=== PATIENT | female | born 1965 | race Caucasian/White ===

== ENCOUNTER 2016-12-12 10:13 | Emergency (ER) | payer SELFPAY ==
[~2016-12-12] VITALS: Ht 170.2 cm; Wt 70.0 kg
[~2016-12-12 10:13] MED LIST: ALPR.25 PO; HYDR10TA16 PO; SOMA350T PO
[2016-12-12 10:27] VITALS: BP 138/88; PULSE 74; RESP 16; TEMP 98.1; O2SAT 98
--- NOTE | 2016-12-12 10:42 | PD ---
HPI Chief Complaint: Medical Clearance Time Seen by Provider: 10:36 Travel History International Travel<30 days: No Contact w/Intl Traveler<30days: No Traveled to known affect area: No History of Present Illness HPI 51-year-old female presents the emergency Department with history of 4 years of right knee pain back pain, and lower extremity pain. She is sent here by her physician for outpatient MRI of her cervical spine, right knee, and left lower extremity. Patient has no acute issue as we speak. Patient is attempting to get [employer] insurance for disability. She has no known drug allergies. PFSH Past Medical History Anxiety: Yes Diminished Hearing: No Hypertension: Yes Insomnia: Yes Musculoskeletal: Yes (CHRONIC JOINT PAIN) ?: Not Menopausal: Yes Past Surgical History Gynecologic Surgery: Yes (CYST REMOVED RIGHT OVARY) Other Surgery: Yes (CANDICE GLAND REMOVAL) Social History Alcohol Use: No Tobacco Use: Yes (3 CIG DAY) Substance Use: No Allergies-Medications (Allergen,Severity, Reaction): Coded Allergies: No Known Allergies (Verified , 05/08/13) Reported Meds & Prescriptions Reported Meds & Active Scripts Active Reported Soma (Carisoprodol) 350 Mg Tab 350 Mg PO HS Xanax 0.25 Mg Tab (Alprazolam) 0.25 Mg Tab 0.25 Mg PO TIDPRN Lortab 10/500 (Acetaminophen/Hydrocodone Bitart) 10 Mg/500 Mg Tab 1 Tab PO Q6HPRN FOR PAIN Review of Systems Except as stated in HPI: all other systems reviewed are Neg General / Constitutional: No: Fever Eyes: No: Visual changes HENT: No: Headaches Cardiovascular: No: Chest Pain or Discomfort Respiratory: No: Shortness of Breath Gastrointestinal: No: Abdominal Pain Genitourinary: No: Dysuria Musculoskeletal: Positive: Arthralgias, Limited ROM, Pain Skin: No Rash Neurologic: No: Weakness Psychiatric: No: Depression Endocrine: No: Polydipsia Hematologic/Lymphatic: No: Easy Bruising Physical Exam Narrative GENERAL: Patient is a mature to the room with a cane. SKIN: Warm and dry. Color. Normal turgor. HEAD: Atraumatic. Normocephalic. EYES: Pupils equal and round. No scleral icterus. No injection or drainage. ENT: No nasal bleeding or discharge. Mucous membranes pink and moist. Pharynx is clear. NECK: Trachea midline. Neck is supple nontender. CARDIOVASCULAR: Regular rate and rhythm. RESPIRATORY: No accessory muscle use. Clear to auscultation. Breath sounds equal bilaterally. MUSCULOSKELETAL: Extremities without clubbing, cyanosis, or edema. No obvious deformities. Patient complains of pain in the right knee and lower extremity on the left. NEUROLOGICAL: Awake and alert. No obvious cranial nerve deficits. Motor grossly within normal limits. Five out of 5 muscle strength in the arms and legs. Normal speech. PSYCHIATRIC: Appropriate mood and affect; insight and judgment normal. Data Data Last Documented VS Vital Signs Date Time Temp Pulse Resp B/P Pulse Ox O2 Delivery O2 Flow Rate FiO2 12/12/16 10:27 98.1 74 16 138/88 98 MDM Medical Decision Making Medical Screen Exam Complete: Yes Emergency Medical Condition: No Differential Diagnosis Chronic right knee pain. Chronic left lower extremity pain. Chronic neck pain. Narrative Course A medical screening exam was performed: At the time of evaluation the presenting medical condition was determined not to be of an emergent nature. The patient was given the option of receiving additional care, but declined. Patient was given options for additional community resources from which to obtain care. The Patient Has Been advised to seek medical attention for their presenting complaint. The patient has been advised to return to the ER at any time if an emergent condition develops. Condition: Stable Jose Bell Dec 12, 2016 10:42
== END 2016-12-12 11:05 | disposition left against medical advice (07) ==
LOC: NEPB 10:13
DX: G89.29 Other chronic pain (principal); M25.561 Pain in right knee; M54.2 Cervicalgia; M79.662 Pain in left lower leg
CPT/HCPCS: 99281

== ENCOUNTER 2016-12-21 11:24 | Emergency (ER) | payer SELFPAY ==
[2016-12-21 11:27] VITALS: BP 186/81; PULSE 78; RESP 16; TEMP 97.5; O2SAT 99
[2016-12-21 11:40] VITALS: BP 186/79; PULSE 64; RESP 20; O2SAT 100
--- NOTE | 2016-12-21 11:51 | PD ---
HPI Chief Complaint: Numbness/Tingling Time Seen by Provider: 11:51 Travel History International Travel<30 days: No Contact w/Intl Traveler<30days: No Traveled to known affect area: No History of Present Illness HPI 51-year-old female with history of hypertension, chronic joint pain, anxiety, tobacco dependency, cervical radiculopathy with neuropathy of the upper extremities presents to emergency department for evaluation of numbness from her left knee distally. Patient states she noticed this 2 days ago. She states that she felt that her leg was "asleep" but the symptoms have not resolved. Denies any injury. Reports a mild headache and reports difficulty seeing distances more so than usual. Denies any nausea or vomiting. No chest tightness. No other focal deficits or weakness. No other symptoms to report. PFSH Past Medical History Anxiety: Yes Diminished Hearing: No Hypertension: Yes Insomnia: Yes Musculoskeletal: Yes (CHRONIC JOINT PAIN) Menopausal: Yes Past Surgical History Gynecologic Surgery: Yes (CYST REMOVED RIGHT OVARY) Other Surgery: Yes (CANDICE GLAND REMOVAL) Social History Alcohol Use: No Tobacco Use: Yes (3 CIG DAY) Substance Use: No Allergies-Medications (Allergen,Severity, Reaction): Coded Allergies: No Known Allergies (Verified , 12/21/16) Reported Meds & Prescriptions Reported Meds & Active Scripts Active Reported Acyclovir 400 Mg Tab 400 Mg PO TID Promethazine-Codeine Liq 6.25-10 Mg/5 Ml Syrp 5 Ml PO Q6H PRN Lisinopril 10 Mg Tab 10 Mg PO DAILY Lortab (Hydrocodone-Acetaminophen) 10-325 Mg Tab 1 Tab PO Q6H PRN Baclofen 10 Mg Tab 10 Mg PO TID Amoxicillin 500 Mg Tab 500 Mg PO Q8HR Alprazolam 2 Mg Tab 2 Mg PO TID PRN Review of Systems Except as stated in HPI: all other systems reviewed are Neg Physical Exam Narrative GENERAL: Well-nourished female patient, ambulatory with cane assistance, no acute distress SKIN: Warm and dry. HEAD: Atraumatic. Normocephalic. EYES: Pupils equal and round. No scleral icterus. No injection or drainage. EOMI. Patient is able to easily reach my badge 18 inch distance with each eye and dependently. ENT: No nasal bleeding or discharge. Mucous membranes pink and moist. NECK: Trachea midline. No JVD. CARDIOVASCULAR: Regular rate and rhythm. No murmur appreciated. RESPIRATORY: No accessory muscle use. Clear to auscultation. Breath sounds equal bilaterally. GASTROINTESTINAL: Abdomen soft, non-tender, nondistended. Hepatic and splenic margins not palpable. MUSCULOSKELETAL: No obvious deformities. No clubbing. No cyanosis. No edema. NEUROLOGICAL: Awake and alert. No obvious cranial nerve deficits. No ankle clonus bilateral lower extremities. Negative Babinski. Patient denies sensation distal to the left sharp force auscultation. Distal pulses are palpable. Cap refill is within normal limits. Normal speech. No pronator drift. Slight weakness to plantar extension on the left when compared to the right. PSYCHIATRIC: Appropriate mood and affect; insight and judgment normal. Data Data Last Documented VS Vital Signs Date Time Temp Pulse Resp B/P Pulse Ox O2 Delivery O2 Flow Rate FiO2 12/21/16 16:32 98 Room Air 12/21/16 16:18 70 16 124/70 12/21/16 11:27 97.5 Orders Electrocardiogram (12/21/16 12:03) Basic Metabolic Panel (Bmp) (12/21/16 12:03) Complete Blood Count With Diff (12/21/16 12:03) Prothrombin Time / Inr (Pt) (12/21/16 12:03) Act Partial Throm Time (Ptt) (12/21/16 12:03) Urinalysis - C+S If Indicated (12/21/16 12:03) Blood Glucose (12/21/16 12:03) Ecg Monitoring (12/21/16 12:03) Iv Access Insert/Monitor (12/21/16 12:03) Oximetry (12/21/16 12:03) Sodium Chloride 0.9% Flush (Ns Flush) (12/21/16 12:15) Sodium Chlor 0.9% 1000 Ml Inj (Ns 1000 M (12/21/16 12:03) Mri Brain W&W/O Contrast (12/21/16 ) Ct Brain W/O Iv Contrast(Rout) (12/21/16 ) Alprazolam (Xanax) (12/21/16 12:45) Mri C Spine W/O Contrast (12/21/16 ) Gadodiamide Pf Inj (Omniscan Pf Inj) (12/21/16 15:20) Labs Laboratory Tests Test 12/21/16 12/21/16 12:15 13:15 White Blood Count 9.3 TH/MM3 Red Blood Count 4.26 MIL/MM3 Hemoglobin 13.8 GM/DL Hematocrit 39.6 % Mean Corpuscular Volume 93.0 FL Mean Corpuscular Hemoglobin 32.4 PG Mean Corpuscular Hemoglobin 34.8 % Concent Red Cell Distribution Width 14.6 % Platelet Count 458 TH/MM3 Mean Platelet Volume 7.5 FL Neutrophils (%) (Auto) 52.6 % Lymphocytes (%) (Auto) 38.1 % Monocytes (%) (Auto) 5.6 % Eosinophils (%) (Auto) 2.5 % Basophils (%) (Auto) 1.2 % Neutrophils # (Auto) 4.9 TH/MM3 Lymphocytes # (Auto) 3.5 TH/MM3 Monocytes # (Auto) 0.5 TH/MM3 Eosinophils # (Auto) 0.2 TH/MM3 Basophils # (Auto) 0.1 TH/MM3 CBC Comment DIFF FINAL Differential Comment Prothrombin Time 10.0 SEC Prothromb Time International 0.9 RATIO Ratio Activated Partial 24.5 SEC Thromboplast Time Urine Color LIGHT-YELLOW Urine Turbidity CLEAR Urine pH 7.5 Urine Specific [place] 1.008 Urine Protein NEG mg/dL Urine Glucose (UA) NEG mg/dL Urine Ketones NEG mg/dL Urine Occult Blood SMALL Urine Nitrite NEG Urine Bilirubin NEG Urine Urobilinogen LESS THAN 2.0 MG/DL Urine Leukocyte Esterase NEG Urine RBC 5 /hpf Urine WBC LESS THAN 1 /hpf Urine Squamous Epithelial <1 /hpf Cells Microscopic Urinalysis Comment CATH-CULT NOT IND Sodium Level 144 MEQ/L Potassium Level 3.7 MEQ/L Chloride Level 110 MEQ/L Carbon Dioxide Level 28.1 MEQ/L Anion Gap 6 MEQ/L Blood Urea Nitrogen 6 MG/DL Creatinine 0.49 MG/DL Estimat Glomerular Filtration 132 ML/MIN Rate Random Glucose 85 MG/DL Calcium Level 8.1 MG/DL [facility] Medical Decision Making Medical Screen Exam Complete: Yes Emergency Medical Condition: Yes Medical Record Reviewed: Yes Differential Diagnosis Neuropathy versus paresthesia versus radiculopathy versus intracranial etiology Narrative Course 51-year-old female presents to department for evaluation of numbness from the left knee distally. Patient appears without distress. Patient does have slight weakness of plantar extension of the left foot compared to the right. Denies sensation to soft or sharp touch distal to the left knee. The extremity is otherwise vascularly intact. CBC, BMP are without acute concern. Urinalysis small occult blood, 5 WBC, cultures not indictated. I discussed the patient's attending physician who recommended the pharmacy team to the right as well as MRI. Last Impressions Head CT 12/21/16 Signed Impressions: Service Date/Time: Wednesday, December 21, 2016 12:37 - CONCLUSION: No acute disease. Lance Hoyt MD Cervical Spine MRI 12/21/16 Signed Impressions: Service Date/Time: Wednesday, December 21, 2016 14:29 - CONCLUSION: Mild broad disc protrusions at C5-6 and C6-7 levels. There does appear to be some degree of right sided foraminal compromise at C5-6. The canal is satisfactory throughout. Julio Leonard MD Brain MRI 12/21/16 Signed Impressions: Service Date/Time: Wednesday, December 21, 2016 14:29 - CONCLUSION: 1. Negative examination. Irvin Moore MD CT angiogram and MRI of the brain are negative. The cervical spine shows mild broad disc contusion C5, C6-C7 levels. There is some degree of right sided foraminal compromise at C5-6. Canal is satisfactory throughout. These are discussed with the patient. She is advised to follow-up with primary care provider and return immediately if any acute worsening symptoms. She has pain control at home and is instructed to take it as directed. She agrees to return immediately if any worsening of symptoms. Diagnosis Primary Impression: Paresthesia of left lower extremity Referrals: Primary Care Physician Patient Instructions: General Instructions, Paresthesia (ED) Additional Instructions: Follow-up with your primary care provider MRI report has been given to you. Please take this to your follow-up Return immediately with any acute worsening of symptoms Med/Other Pt SpecificInfo: No Change to Meds Disposition: 01 DISCHARGE HOME Condition: Stable Wen Tariq Dec 21, 2016 11:51
[2016-12-21] MEDS ORDERED: SODIUM CHLOR 0.9% 1000 ML INJ 1,000 ML IV SCH (12:03)
[2016-12-21] MEDS ORDERED: SODIUM CHLORIDE 0.9% FLUSH 10 ML FLUSH IVF PRN (12:15)
[2016-12-21 12:30] VITALS: BP 154/77; PULSE 62; RESP 18; O2SAT 98
[2016-12-21 12:42] LABS: AUTOMATED NEUTROPHIL # 4.9 TH/MM3 (1.8-7.7); BASOPHIL # 0.1 TH/MM3 (0-0.2); BASOPHIL % 1.2 % (0.0-2.0); EOSINOPHIL # 0.2 TH/MM3 (0-0.4); EOSINOPHIL % 2.5 % (0.0-4.0); HEMATOCRIT 39.6 % (35.0-46.0); HEMO FLAGS DIFF FINAL; LYMPH % 38.1 % (9.0-44.0); LYMPHOCYTE # 3.5 TH/MM3 (1.0-4.8); MEAN CORPUSCULAR HEMOGLOBIN 32.4 PG (27.0-34.0); MEAN CORPUSCULAR HGB CONC 34.8 % (32.0-36.0); MONO % 5.6 % (0.0-8.0); NEUT % 52.6 % (16.0-70.0); PLATELET COUNT 458 TH/MM3 (150-450); RED BLOOD COUNT 4.26 MIL/MM3 (4.00-5.30); RED CELL DISTRIBUTION WIDTH 14.6 % (11.6-17.2); WHITE BLOOD COUNT 9.3 TH/MM3 (4.0-11.0)
[2016-12-21] MEDS ORDERED: ALPRAZolam 1 MG TAB PO ONE (12:45)
[2016-12-21 12:50] LABS: APTT (PATIENT) 24.5 SEC (24.3-30.1); INTERNATIONAL NORMALIZED RATIO 0.9 RATIO
[2016-12-21 13:01] LABS: BLOOD, URINE SMALL (NEG); GLUCOSE,URINE NEG (NEG); KETONE, URINE NEG (NEG); NITRITE,URINE NEG (NEG); PH, URINE 7.5 (5.0-8.5); SQUAMOUS EPITHELIAL CELL URINE <1 /hpf (0-5); URINE COLOR LIGHT-YELLOW (YELLW/STRAW)
--- NOTE | 2016-12-21 13:06 | RADRPT ---
EXAM DATE/TIME: 12/21/2016 12:37 [facility] COMPARISON: No previous studies available for comparison. INDICATIONS : Numbness and tingling on left lower extremity for two day. RADIATION DOSE: 33.67 CTDIvol (mGy) MEDICAL HISTORY : Hypertension. Cervical neuropathy SURGICAL HISTORY : cyst removed from right overy ENCOUNTER: Initial ACUITY: 2 days PAIN SCALE: 0/10 LOCATION: cranial TECHNIQUE: Multiple contiguous axial images were obtained of the head. Using automated exposure control and adj ustment of the mA and/or kV according to patient size, radiation dose was kept as low as reasonably a chievable to obtain optimal diagnostic quality images. FINDINGS: CEREBRUM: The ventricles are normal for age. No evidence of midline shift, mass lesion, hemorrhage or acute in farction. No extra-axial fluid collections are seen. POSTERIOR FOSSA: The cerebellum and brainstem are intact. The 4th ventricle is midline. The cerebellopontine angle i s unremarkable. EXTRACRANIAL: The visualized portion of the orbits is intact. SKULL: The calvaria is intact. No evidence of skull fracture. CONCLUSION: No acute disease. Lance Hoyt MD on December 21, 2016 at 13:04 Board Certified Radiologist. This report was verified electronically.
[2016-12-21 13:07] LABS: COMMENT (UR) CATH-CULT NOT IND; CULTURE IF INDICATED CATH CULTURE NOT IND
[2016-12-21] MEDS ORDERED: BACL10TA PO (14:01)
[2016-12-21] MEDS ORDERED: PROM6.256 PO (14:01)
[2016-12-21] MEDS ORDERED: ALPR2TAB3 PO (14:01)
[2016-12-21] MEDS ORDERED: HYDR-3535 PO (14:01)
[2016-12-21] MEDS ORDERED: LISI10TA3 PO (14:01)
[2016-12-21] MEDS ORDERED: AMOX500T PO (14:01)
[2016-12-21] MEDS ORDERED: ACYC400T PO (14:01)
[2016-12-21 14:09] LABS: BICARBONATE 28.1 MEQ/L (21.0-32.0); POTASSIUM 3.7 MEQ/L (3.5-5.1)
[2016-12-21 14:25] VITALS: BP 110/70; PULSE 72; RESP 18; O2SAT 98
[2016-12-21] MEDS ORDERED: GADODIAMIDE PF 287 MG/ML 5 ML VIAL (for RAD MRI) IV ONE (15:20)
--- NOTE | 2016-12-21 15:52 | RADRPT ---
EXAM DATE/TIME: 12/21/2016 14:29 [facility] COMPARISON: No previous studies available for comparison. INDICATIONS : Lower extremity weakness. CONTRAST: 12 cc Omniscan (gadodiamide) IV MEDICAL HISTORY : Hypertension. Arthritis. Cervical neuropathy. SURGICAL HISTORY : Left ankle surgery. ENCOUNTER: Initial ACUITY: 2 day PAIN SCORE: 4/10 LOCATION: head TECHNIQUE: Multiplanar, multisequence MRI of the brain was performed both prior to and following the administrat ion of paramagnetic contrast. FINDINGS: CEREBRUM: The ventricles are normal for age. No evidence of midline shift, mass lesion, hemorrhage or acute in farction. No extraaxial fluid collections are seen. The pituitary gland and suprasellar cistern are normal in configuration. WHITE MATTER: No significant signal abnormalities are seen in the white matter. POSTERIOR FOSSA: The cerebellum and brainstem are intact. The 4th ventricle is midline. The cerebellopontine angle is unremarkable. The cerebellar tonsils are normal in position. DIFFUSION IMAGING: No focal areas of restricted diffusion are seen. No evidence of acute infarction. EXTRACRANIAL: The visualized portions of the orbits and paranasal sinuses are unremarkable. POST-CONTRAST: No abnormal areas of parenchymal or dural enhancement. No evidence of blood-brain barrier breakdown. CONCLUSION: 1. Negative examination. Irvin Moore MD on December 21, 2016 at 15:43 Board Certified Radiologist. This report was verified electronically.
--- NOTE | 2016-12-21 15:55 | RADRPT ---
EXAM DATE/TIME: 12/21/2016 14:29 [facility] COMPARISON: No previous studies available for comparison. INDICATIONS : Extremity weakness. MEDICAL HISTORY : Hypertension. Arthritis. Cervical meuropathy. SURGICAL HISTORY : Left ankle surgery. ENCOUNTER: Initial ACUITY: 2 day PAIN SCORE: 2/10 LOCATION: neck TECHNIQUE: Multiplanar, multisequence MRI examination of the cervical spine was performed. FINDINGS: VERTEBRAE: Normal vertebral body height. Homogeneous marrow signal. ALIGNMENT: No evidence of subluxation. CORD: Normal configuration and signal. POST FOSSA: The cerebellar tonsils are normal in position. C2-C3: The thecal sac has a normal configuration. There is no evidence of disc herniation or spinal canal s tenosis. The neural foramina are patent bilaterally. C3-C4: The thecal sac has a normal configuration. There is no evidence of disc herniation or spinal canal s tenosis. The neural foramina are patent bilaterally. C4-C5: The thecal sac has a normal configuration. There is no evidence of disc herniation or spinal canal s tenosis. The neural foramina are patent bilaterally. C5-C6: Broad slight dorsal disc protrusion with a focal right paracentral component extending into the right neural foramen with moderate associated stenosis. The canal is adequate. C6-C7: Broad mild dorsal disc protrusion, slightly eccentric to the left without significant associated irma l or foraminal compromise. C7-T1: The thecal sac has a normal configuration. There is no evidence of disc herniation or spinal canal s tenosis. The neural foramina are patent bilaterally. CONCLUSION: Mild broad disc protrusions at C5-6 and C6-7 levels. There does appear to be some degree of right vikki ed foraminal compromise at C5-6. The canal is satisfactory throughout. Julio Leonard MD on December 21, 2016 at 15:40 Board Certified Radiologist. This report was verified electronically.
[2016-12-21 16:18] VITALS: BP 124/70
[2016-12-21 16:32] VITALS: O2SAT 98
--- NOTE | 2016-12-23 07:19 | EKG ---
Date Performed: 12/21/2016 Time Performed: 13:27:20 PTAGE: 51 years EKG: SINUS BRADYCARDIA BORDERLINE ECG NO PREVIOUS TRACING DOCTOR: Colton Diaz Interpretating Date/Time 12/23/2016 07:18:30
== END 2016-12-21 16:43 | disposition home or self-care (01) ==
LOC: NEPE 11:24
DX: R20.2 Paresthesia of skin (principal); I10 Essential (primary) hypertension; R94.31 Abnormal electrocardiogram [ECG] [EKG]; G89.29 Other chronic pain; R51 Headache; Z72.0 Tobacco use
CPT/HCPCS: 70450; 70553; 72141; 80048; 81001; 85025; 85610; 85730; 93005; 96360; 99284; A9579; J7030